=== PATIENT | female | born 1950 | race Caucasian/White ===

== ENCOUNTER → 2018-02-10 | Outpatient (REF) | payer MEDICARE ==
[2018-02-10 16:39] LABS: ALBUMIN 3.9 GM/DL (3.2-5.2); ALBUMIN/GLOBULIN RATIO 1.11 (1.00-1.93); ALKALINE PHOSPHATASE 91 U/L (45-117); ALT/SGPT 25 U/L (12-78); ANION GAP 5 MEQ/L (8-16); AST/SGOT 34 U/L (7-37); BILIRUBIN,TOTAL 0.5 MG/DL (0.2-1.0); BLOOD UREA NITROGEN 12 MG/DL (7-18); CALCIUM LEVEL 9.1 MG/DL (8.8-10.2); CARBON DIOXIDE LEVEL 29 MEQ/L (21-32); CHLORIDE LEVEL 102 MEQ/L (98-107); CREATININE FOR GFR 0.92 MG/DL (0.55-1.30); GLOMERULAR FILTRATION RATE > 60.0 (>45); GLUCOSE, FASTING 89 MG/DL (70-100); POTASSIUM SERUM 4.8 MEQ/L (3.5-5.1); SODIUM LEVEL 136 MEQ/L (136-145); THEOPHYLLINE LEVEL 18.1 UG/ML (10.0-20.0); TOTAL PROTEIN 7.4 GM/DL (6.4-8.2)
== END ==
LOC: M SFHCLERA 13:08
DX: R11.0 Nausea (principal)
CPT/HCPCS: 80198

== ENCOUNTER → 2018-02-10 | Outpatient (CLI) | payer MEDICARE, BC | LOC: M LRY 12:19 | DX: R06.02 Shortness of breath (principal); J98.4 Other disorders of lung; M41.24 Other idiopathic scoliosis, thoracic region; R11.0 Nausea | CPT/HCPCS: 80198 ==

== ENCOUNTER 2020-02-14 12:09 | Emergency (ER) | payer MEDICARE ==
[~2020-02-14] VITALS: Ht 152.4 cm; Wt 52.3 kg
[2020-02-14] MEDS ORDERED: ALBU8.5H INH (12:29)
[2020-02-14] MEDS ORDERED: ALBU83IN INH (12:29)
[2020-02-14] MEDS ORDERED: THEO300T12 PO (12:29)
[2020-02-14] MEDS ORDERED: ASPI81TA85 PO (12:29)
[2020-02-14] MEDS ORDERED: POTA20TA6 PO (12:29)
[2020-02-14] MEDS ORDERED: RAMI1CAP24 PO (12:29)
--- NOTE | 2020-02-14 13:22 | REP ---
CT study of the cervical spine without contrast: History: Injury in a fall. No comparison study. Technique: Helical scanning is acquired and overlapping 2 mm high resolution axial images were generated and reviewed at bone and soft tissue window settings. Coronal and sagittal multiplanar re-formations images are generated. CT findings: There is no evidence of cervical spine element fracture. No skull base fracture is seen. Cervical vertebral body heights are preserved. Alignment is normal. Facet joints are normally aligned bilaterally at each cervical level on multiplanar re-formations images. There is no evidence of intraspinal or paraspinal hematoma. No extra vertebral abnormality is seen. There are degenerative spondylosis changes most pronounced at C5-6 and C6-7. Mid cervical spine osteoarthritic facet changes are noted. Uncovertebral spurs are noted producing some neural foraminal narrowing bilaterally in the mid cervical spine as well. Impression: Degenerative spondylosis changes. Otherwise negative CT study of the cervical spine without contrast. No fracture seen. Electronically Signed by Antoni Bethea MD 02/14/2020 01:14 P
[2020-02-14] MEDS ORDERED: NORC1TAB7 PO (13:58)
[2020-02-14] MEDS ORDERED: ACETAMINOPHEN TAB 650MG DOSE (2X325MG) PO ONE (14:00)
[2020-02-14 14:19] VITALS: BP 133/81
--- NOTE | 2020-02-14 14:19 | REP ---
CT BRAIN WITHOUT CONTRAST: CT brain performed without IV contrast. Coronal reconstruction images are performed. There is mild atrophy. There is no midline shift or mass effect. There are mild patchy periventricular small vessel ischemic changes bilaterally. There is no acute hemorrhage or extra-axial fluid collection. No skull fracture is seen. There are vascular calcifications in the carotid siphons. IMPRESSION: Atrophy and periventricular small vessel ischemic changes. No acute intracranial hemorrhage or skull fracture. Electronically Signed by Matteo Paez MD 02/14/2020 03:09 P
--- NOTE | 2020-02-14 14:21 | REP ---
LEFT SHOULDER, THREE VIEWS: Three views of the left shoulder performed. There is a fracture of the humeral neck, which is mildly comminuted. There appears to be displacement of the humeral shaft with respect to the humeral head. There is no dislocation of the humeral head. There is mild narrowing and spurring at the acromioclavicular and glenohumeral joints. IMPRESSION: Displaced humeral neck fracture. Electronically Signed by Matteo Paez MD 02/14/2020 03:09 P
== END 2020-02-14 14:20 | disposition home or self-care (01) ==
LOC: M ED 12:09
DX: S49.92XA Unspecified injury of left shoulder and upper arm, initial encounter (principal); S42.292A Other displaced fracture of upper end of left humerus, initial encounter for closed fracture; I67.82 Cerebral ischemia; M47.812 Spondylosis without myelopathy or radiculopathy, cervical region; W19.XXXA Unspecified fall, initial encounter; Y92.099 Unspecified place in other non-institutional residence as the place of occurrence of the external cause; Y93.9 Activity, unspecified; Y99.9 Unspecified external cause status; J44.9 Chronic obstructive pulmonary disease, unspecified; Z87.891 Personal history of nicotine dependence; Z79.82 Long term (current) use of aspirin; Z79.899 Other long term (current) drug therapy; Z88.6 Allergy status to analgesic agent; Z88.5 Allergy status to narcotic agent

== ENCOUNTER → 2022-09-23 | Outpatient (CLI) | payer MEDICARE ==
[~2022-09-23] MED LIST: ALBU2.5V10 INH; ALBU8.5H INH; ASPI81TA86 PO; NORC1TAB7 PO; POTA-151 PO; RAMI1CAP24 PO; THEO300T12 PO
== END ==
LOC: M CARPUL 15:46
PROVIDERS: ATTEND Registered Nurse
DX: I31.39 Other pericardial effusion (noninflammatory) (principal); R00.0 Tachycardia, unspecified; I35.8 Other nonrheumatic aortic valve disorders